=== PATIENT | female | born 1965 | race Caucasian/White ===

== ENCOUNTER 2016-08-15 16:52 | Emergency (ER) | payer OTHER ==
[~2016-08-15] VITALS: Ht 154.9 cm; Wt 75.5 kg
[2016-08-15 17:31] VITALS: Ht 154.9 cm; Wt 75.5 kg
[2016-08-15] MEDS ORDERED: IBUP-1542 PO (17:46)
[2016-08-15] MEDS ORDERED: OFLO5DRO7 RIGHT EAR (17:46)
--- NOTE | 2016-08-15 17:50 | ERD ---
ER Documentation Chief Complaint Date/Time DATE: 08/15/16 TIME: 17:49 Chief Complaint R EAR PAIN HPI 50-year-old female comes in with right-sided ear pain after she was showering earlier today. She states that water got in there and she feels ear fullness. She denies fevers, chills. She denies any history of diabetes mellitus. ROS All systems reviewed and are negative except as per history of present illness. Medications Home Meds Active Scripts Ofloxacin Otic (Ofloxacin Otic) 5 Ml Drops, 5 DROP RIGHT EAR BID for 7 Days, #1 BOTTLE Prov:DORITA BHATTI PA-C 08/15/16 Ibuprofen* (Motrin*) 600 Mg Tab, 600 MG PO Q6, #30 TAB Prov:DORITA BHATTI PA-C 08/15/16 Allergies Allergies: Uncoded Allergies: PCN (Allergy, Severe, 05/16/12) Physical Exam Vitals Vital Signs Date Time Temp Pulse Resp B/P Pulse Ox O2 Delivery O2 Flow Rate FiO2 08/15/16 17:31 98.0 95 18 154/96 99 Physical Exam General: Well-developed, well-nourished. The patient appears in no acute distress. HEENT: Head is normocephalic, atraumatic. No scleral icterus. Right TM is mildly obscured, at the 4 o'clock position, there is no erythema, trauma to the external ear canal. Left ear is unremarkable. Neck: Supple. Nontender. Lungs: Clear to auscultation. Normal air movement. Heart: Regular rate and rhythm. S1 and S2 are normal. No murmurs, gallops, or rubs. Abdomen: Nondistended. Extremities: No clubbing or cyanosis. Moving extremities x 4. No weakness. Neurologic: Alert and oriented 3. No focal deficits. Normal speech and gait. Skin: Normal turgor. No rash or lesions. Procedures/MDM 50-year-old female comes in with ear trauma from water irrigation, patient will be covered with antibiotic drops, and given Motrin for pain. Possible rupture of the tympanic membrane at the 4 o'clock position, therefore drops will be beneficial. No evidence of any foreign bodies seen, otitis externa or media. Departure Diagnosis: Primary Impression: Right ear pain Condition: Good Patient Instructions: Earache W/O Infection (Adult) Additional Instructions: Call your primary care doctor TOMORROW for an appointment during the next 1-2 days.See the doctor sooner or return here if your condition worsens before your appointment time. DORITA BHATTI PA-C Aug 15, 2016 17:50
== END 2016-08-15 18:58 | disposition home or self-care (01) ==
LOC: E/R 16:52
DX: H92.01 Otalgia, right ear (principal)
CPT/HCPCS: 99283

== ENCOUNTER 2018-01-19 12:53 | Emergency (ER) | END 2018-01-19 16:54 | disposition home or self-care (01) ==